=== PATIENT | male | born 1985 | race Caucasian/White ===

== ENCOUNTER 2016-12-08 12:39 | Emergency (ER) | payer OTHER, BC ==
[2016-12-08 12:51] VITALS: BP 147/85; PULSE 76; TEMP 98.4; BMI 28.4
[2016-12-08] MEDS ORDERED: DIPHTHERIA AND TETANUS (ADULT) 0.5 ML SYR IM ONE (13:13)
[2016-12-08] MEDS ORDERED: IBUPROFEN 800 MG TAB PO ONE (13:13)
[2016-12-08] MEDS ORDERED: LIDOCAINE 2% 5 ML (PRESERVATIVE FREE) VIAL INF ONE (13:46)
--- NOTE | 2016-12-08 13:55 | EDPRACDOC ---
- General Information Chief Complaint: Wound Information Source: Patient Mode of Arrival:: Car Home Medications: Home Medications Cyclobenzaprine HCl 10 mg PO DAILY PRN 12/08/16 Ibuprofen 600 mg PO TID #20 tablet 12/08/16 Allergies/Adverse Reactions: Allergies Allergy/AdvReac Type Severity Reaction Status Date / Time prednisone Allergy See Verified 12/08/16 13:48 Comments - History of Present Illness Onset: today HPI: PT PRESENTS TODAY WITH LACERATION TO DISTAL LEFT INDEX FINGER [employer]. UNKNOWN TETANUS. - Tetanus Status Last Tetanus: No - Pain Pain Severity: Mild Bleeding: Reports: Controlled Associated Signs & Symptoms: Reports: None ED Past Medical History - History Reviewed Yes Nurses notes reviewed and agree except as marked - Patient Medical History Psychological History: Denies: Depression Surgical History: Reports: Appendectomy - Social Medical History Smoking Status: Never smoker EDM Review of Systems - Review of Systems ROS Negative Except as Marked: Yes All systems reviewed and were negative except as marked Constitutional: No Symptoms Reported Neurological: No Symptoms Reported Musculoskeletal: Hand Integumentary: Wound - Physical Exam Constitutional: Alert (Awake), No apparent distress Oriented to: Time, Person, Place Last recorded Vital Signs: Last Vital Signs Temp 98.4 F 12/08/16 12:50 Pulse 76 12/08/16 12:50 Resp 18 12/08/16 12:50 BP 147/85 12/08/16 12:50 Pulse Ox 100 12/08/16 12:50 Oxygen Pulse Oxygen Saturation 100 O2 Device Room Air Oxygen Flow Rate Fraction of Inspired Oxygen ( FIO2) - HEENT Head: Normal Eye Exam: Normal Neck: Normal, Denies Pain, Midline - Respiratory/Cardiovascular Respiratory: Normal - CTA Cardiovascular: Normal - GI Palpation: Normal Tenderness: Non tender - Musculoskeletal Back: Normal Extremities: Other (NOTED 2.5 CM LINEAR LACERATION TO TIP OF LEFT INDEX FINGER, VOLAR SIDE; BLEEDING CONTROLLED; NO TENDON INVOLVEMENT; FULL ROM OF FINGER; CAP REFILL < 1) - Integumentary Skin: Normal Lymphatics: Normal - Neurologic Cerebellar: Normal Mood Description: Normal Thought: Coherent Perception: Normal ED Procedures - Suture/Laceration Suture #1 Left Distal Finger Wound Length (cm): 2.5 Wound's Depth, Shape: linear Wound Explored: contaminated Irrigated w/ Saline (ccs): 500 Betadine Prep?: Yes Anesthesia: 1% Lidocaine Volume Anesthetic (ccs): 3 Wound Debrided: minimal Wound Margins: Revised Wound Repaired With: Sutures Suture Size/Type: 4:0, nylon Number of Sutures: 7 Layer Closure?: No Decision Time to Discharge: 13:56 - Departure Disposition: Home Condition: Good Final Diagnosis: [id number] Instructions: Laceration (ED) Education/Counseling Given To: Patient Education/Counseling Given Regarding: Diagnosis, Treatment, Follow Up Referrals: None,No Provider [Primary Care Provider] - One Week Prescriptions: New Ibuprofen 600 mg PO TID #20 tablet No Action Cyclobenzaprine HCl 10 mg PO DAILY PRN PRN Reason: Pain Additional Instructions: KEEP BANDAGE CLEAN. CHANGE DRESSING DAILY. HAVE REMOVED IN 7-10 DAYS.
--- NOTE | 2016-12-08 14:06 | DIRPT ---
CLINICAL DATA: Laceration distal aspect of the left index finger while operating machinery today. Initial encounter. EXAM: LEFT FINGER(S) - 2+ VIEW COMPARISON: None. FINDINGS: Skin defect consistent with laceration is seen at the level of the DIP joint of the left index finger on the radial side. No underlying fracture, dislocation or foreign body. IMPRESSION: Laceration without fracture or foreign body. Electronically Signed By: Hiro Freeman M.D. On: 12/08/2016 14:03
== END 2016-12-08 14:21 | disposition home or self-care (01) ==
LOC: EDMC 12:39
DX: S61.211A Laceration without foreign body of left index finger without damage to nail, initial encounter (principal); W31.9XXA Contact with unspecified machinery, initial encounter; Y99.0 Civilian activity done for income or pay; Z23 Encounter for immunization
CPT/HCPCS: 12001; 73140; 90471; 90714; 99283; J2001; J3490